=== PATIENT | male | born 1970 | race African-American/Black ===

== ENCOUNTER 2021-11-08 15:38 | Emergency (ER) | payer BC ==
[2021-11-08 15:43] VITALS: TEMP 98.1; BMI 28.4
[2021-11-08 17:15] LABS: ALBUMIN 4.3 g/dl (3.4-5.0); BILIRUBIN,TOTAL 0.9 mg/dl (0.2-1); CALCIUM 9.6 mg/dl (8.5-10); MAGNESIUM 2.2 mg/dL (1.8-2.4); PHOSPHOROUS 3.9 mg/dl (2.5-4.9)
[2021-11-08 18:18] LABS: BASO % 0.9 % (0-2.0); EOS % 2.4 % (0-4.5); HEMATOCRIT 44.8 % (35.4-49); HEMOGLOBIN 14.6 GM/dL (11.7-16.9); LYMPH % 42.3 % (8-40); MCH 28.8 pg (25.7-33.7); MCHC 32.5 g/dl (32.0-35.9); MEAN CELL VOLUME 88.5 fl (80-96); MEAN PLT VOLUME 9.3 fl (7.5-11.1); MONO % 7.1 % (3.8-10.2); NEUT % 47.3 % (42.8-82.8); PLATELET COUNT 248 10^3/uL (134-434); RBC 5.06 M/mm3 (4.00-5.60); RDW 13.5 % (11.9-15.9); WHITE BLOOD COUNT 6.2 K/mm3 (4.0-10.0)
[2021-11-08 18:22] VITALS: BP 142/87; PULSE 79
== END 2021-11-08 18:44 | disposition home or self-care (01) ==
LOC: FER 15:38
DX: R00.2 Palpitations (principal)
CPT/HCPCS: 36415; 71046-TC-FY; 80053; 83735; 84100; 84443; 84484; 85025; 93005; 99285-25

== ENCOUNTER 2021-12-22 11:08 | Emergency (ER) | payer BC ==
[2021-12-22 11:35] VITALS: BP 160/94; PULSE 87; TEMP 97.7; BMI 29.2
[2021-12-22] MEDS ORDERED: ACETAMINOPHEN 325 MG TABLET (FP) PO ONE (11:53)
[2021-12-22] MEDS ORDERED: LIDOCAINE 5% TOPICAL PATCH TP ONE (11:53)
[2021-12-22] MEDS ORDERED: LIDOCAINE 5% TOPICAL PATCH ONE (11:56)
[2021-12-22] MEDS ORDERED: ACETAMINOPHEN 325 MG TABLET (FP) ONE (11:56)
[2021-12-22] MEDS ORDERED: LIDOCAINE PATCH REMOVAL MC SCH (22:00)
== END 2021-12-22 12:14 | disposition home or self-care (01) ==
LOC: FER 11:08
DX: M25.511 Pain in right shoulder (principal)
CPT/HCPCS: 99283-25